=== PATIENT | male | born 1975 | race Caucasian/White ===

== ENCOUNTER 2017-12-15 03:43 | Emergency (ER) | payer SELFPAY ==
[2017-12-15] MEDS: TETRACAINE 0.5% 4 ML OPH RIGHT EYE (05:30)
[2017-12-15] MEDS: FLUORESCEIN STRIP RIGHT EYE (05:30)
[2017-12-15] MEDS: LIDOCAINE 1% (MDV) 10 ML INJ INJ (05:36)
[2017-12-15] MEDS: IBUPROFEN 600 MG TAB PO (05:50)
[2017-12-15] MEDS: DIPHTH/TET/ACEL PERTUSS (ADULT) 0.5 ML VIAL IM (05:54)
[2017-12-15] MEDS: CEFAZOLIN 1 GM INJ IM (10:08)
== END 2017-12-15 10:36 | disposition home or self-care (01) ==
LOC: FTE 03:43
DX: S02.31XA Fracture of orbital floor, right side, initial encounter for closed fracture (principal); S06.0X0A Concussion without loss of consciousness, initial encounter; S20.20XA Contusion of thorax, unspecified, initial encounter; R07.9 Chest pain, unspecified; Y09 Assault by unspecified means; Z23 Encounter for immunization
CPT/HCPCS: 12013; 70450; 70480; 71046; 90471; 90715; 96372; 99285-25

== ENCOUNTER 2017-12-24 11:05 | Emergency (ER) | payer BC | END 2017-12-24 12:00 | disposition home or self-care (01) | LOC: FTE 11:05 | DX: Z48.02 Encounter for removal of sutures (principal) | CPT/HCPCS: 99281 ==